=== PATIENT | male | born 1940 | race Caucasian/White ===

== ENCOUNTER → 2020-03-16 14:52 | Outpatient (CLI) | payer MEDICARE, BC ==
[~2020-03-16 14:52] MED LIST: ALPHA LIPOIC ACID; BEETROOT; CO Q-10100 MG PO; CRANBERRY; ESTER-C; GARLIC; LISINOPRIL30 MG PO; MULTIVITAMIN; NIACIN; OMEGA-3100 MG PO; SAW PALMETTO450 MG PO; TUMERIC; VITAMIN D3
== END | disposition home or self-care (01) ==
LOC: D.CT 14:52
PROVIDERS: ATTEND Family Medicine
DX: R10.9 Unspecified abdominal pain (principal)

== ENCOUNTER 2020-03-16 19:49 | Emergency (ER) | payer MEDICARE, BC ==
[~2020-03-16] VITALS: Ht 176.5 cm; Wt 86.4 kg
[2020-03-16 20:03] VITALS: Ht 176.5 cm; Wt 86.4 kg
[2020-03-16] MEDS ORDERED: LISINOPRIL30 MG PO (20:05)
[2020-03-16] MEDS ORDERED: SAW PALMETTO450 MG PO (20:05)
[2020-03-16] MEDS ORDERED: MULTIVITAMIN (20:06)
[2020-03-16] MEDS ORDERED: CO Q-10100 MG PO (20:06)
[2020-03-16] MEDS ORDERED: CRANBERRY (20:06)
[2020-03-16] MEDS ORDERED: OMEGA-3100 MG PO (20:06)
[2020-03-16] MEDS ORDERED: ALPHA LIPOIC ACID (20:07)
[2020-03-16] MEDS ORDERED: ESTER-C (20:07)
[2020-03-16] MEDS ORDERED: TUMERIC (20:08)
[2020-03-16] MEDS ORDERED: GARLIC (20:08)
[2020-03-16] MEDS ORDERED: NIACIN (20:08)
[2020-03-16] MEDS ORDERED: VITAMIN D3 (20:09)
[2020-03-16] MEDS ORDERED: BEETROOT (20:09)
[2020-03-16 20:40] LABS: BASOPHILS 0.1 % (0-2); EOSINOPHILS 0.2 % (0-7); HEMATOCRIT 47.4 % (42.0-54.0); HEMOGLOBIN 16.1 g/dL (13.5-17.5); IMMATURE GRANULOCYTES 0.2 % (0-5); LYMPHOCYTES 5.6 % (15-50); MCH 32.2 pg (26.0-34.0); MCV 94.8 fL (80.0-100.0); MEAN PLATELET VOLUME 9.9 fL (7.4-10.4); MONOCYTES 8.6 % (2-11); NEUTROPHILS 85.3 % (40-80); PLATELET COUNT 199 10x3/uL (130-400); RDW 12.9 % (11.5-14.5); WBC 16.2 10x3/uL (4.8-10.8)
[2020-03-16 20:57] LABS: CALC OSMOLALITY 266 mosm/kg (275-300); CALCIUM 8.3 mg/dL (8.5-10.1); CARBON DIOXIDE 30.1 mmol/L (21.0-32.0); CHLORIDE - SERUM 96 mmol/L (98-107); CREATININE - SERUM 1.5 mg/dL (0.6-1.3); GLUCOSE 143 mg/dL (74-106); POTASSIUM - SERUM 3.8 mmol/L (3.5-5.1); SODIUM 131 mmol/L (136-145); UREA NITROGEN 19 mg/dL (7-18); eGFR NON AFRICAN AMERICAN 48 mL/min (90-120)
[2020-03-16 21:07] LABS: ALBUMIN 3.5 g/dL (3.4-5.0); ALKALINE PHOSPHATASE 66 U/L (30-120); ALT (SGPT) 29 U/L (10-68); AMYLASE - SERUM 38 U/L (25-115); BILIRUBIN - TOTAL 0.95 mg/dL (0.2-1.3); LIPASE 61 U/L (73-393); PROTEIN - SERUM 7.6 g/dL (6.4-8.2)
[2020-03-16 21:08] LABS: TROPONIN-I < 0.017 ng/mL (0.000-0.060)
[2020-03-16 21:20] LABS: BILIRUBIN NEGATIVE (NEGATIVE); GLUCOSE NEGATIVE (NEGATIVE); KETONE NEGATIVE (NEGATIVE); NITRITE NEGATIVE (NEGATIVE); SPECIFIC GRAVITY 1.015 (1.005-1.020); UROBILINOGEN NORMAL (NORMAL)
[2020-03-16 21:21] LABS: BACTERIA FEW /hpf (NEGATIVE); WHITE CELLS - URINE OCC /hpf (NEGATIVE)
[2020-03-17 00:40] VITALS: BP 164/90
== END 2020-03-17 00:40 | disposition other institution (70) ==
LOC: D.ER 19:49
PROVIDERS: Family Medicine
DX: N13.2 Hydronephrosis with renal and ureteral calculous obstruction (principal); I10 Essential (primary) hypertension; N17.9 Acute kidney failure, unspecified; K52.9 Noninfective gastroenteritis and colitis, unspecified; E83.51 Hypocalcemia; D72.829 Elevated white blood cell count, unspecified; R73.9 Hyperglycemia, unspecified; K59.00 Constipation, unspecified

== ENCOUNTER 2020-04-12 07:02 | Day surgery (SDC) | payer MEDICARE, BC ==
[~2020-04-12] VITALS: Ht 176.5 cm; Wt 83.6 kg
[2020-04-12 07:31] LABS: HEMATOCRIT 43.9 % (42.0-54.0); HEMOGLOBIN 14.5 g/dL (13.5-17.5); MCH 31.3 pg (26.0-34.0); MCV 94.8 fL (80.0-100.0); MEAN PLATELET VOLUME 9.5 fL (7.4-10.4); RBC 4.63 10x6/uL (4.20-6.10); RDW 12.7 % (11.5-14.5); WBC 6.2 10x3/uL (4.8-10.8)
[2020-04-12 08:29] VITALS: BP 122/64; Ht 176.5 cm; Wt 83.6 kg
--- NOTE | 2020-04-12 11:17 | NUR ---
1112 DR. NATACHA ESPINOZA. XRAY NOTIFIED OF NEED FOR XRAY.
--- NOTE | 2020-04-12 12:20 | NUR ---
[address] MANZANO POST PROCEDURE CHEST XRAY: NO FREE AIR. STATES PATIENT NO LONGER IS NPO. MAY ADVANCE DIET & DISCHARGE. Sanjuanita REYES R.N.
--- NOTE | 2020-04-12 14:50 | NUR ---
1230 DRANK & RETAINED OJ. IV DC'ED WITH CATH INTACT. DRESSING. Sanjuanita HigginbothamNAnderson 1240 DRESSED. AWAKE & ALERT. GIVEN DISCHARGE INFORMATION INCLUDING: MED REC, RX: JOSE, RTC APPT,[facility]PS POST ENDOSCOPIC D/C INSTRUCTIONS. PT VOICED UNDERSTANDING. TO PRIVATE CAR VIA WHEELCHAIR BY THIS NURSE. HOME WITH FRIEND, FARIHA SOSA. Sanjuanita REYES R.N.
--- NOTE | 2020-04-13 16:07 | HP ---
PATIENT: BARBARA CHUNG MEDICAL RECORD: [id number] ACCOUNT: [id number] [facility] : 42 ADMISSION DATE: 04/12/20 PCP: BARRINGTON SUMNER MD HISTORY AND PHYSICAL EXAMINATION CHIEF COMPLAINT: Possible colon mass. HISTORY OF PRESENT ILLNESS: The patient underwent a CT scan and it stated that there was focal circumferential wall thickening in the mid sigmoid colon concerning for a possible mass and direct visualization, in other words endoscopy, was recommended. The patient had no hematochezia. No abdominal pain. No melena. HOME MEDICINES: Lisinopril. ALLERGIES: No known drug allergies. SOCIAL HISTORY: Nonsmoker. PAST MEDICAL AND SURGICAL HISTORY: Questionable sleep apnea, hypertension, gastroesophageal reflux. REVIEW OF SYSTEMS: Negative for seizures or CVA. Negative for diabetes or thyroid problems. PHYSICAL EXAMINATION: GENERAL: The patient does not appear acutely ill. He does not appear chronically ill. VITAL SIGNS: Reviewed. EARS: External ears appear normal. EYES: Extraocular movements are intact. NECK: Trachea is midline. CHEST: No intercostal retractions. PULMONARY: Nonlabored. IMPRESSION: CT evidence of a sigmoid colon mass. PLAN: Colonoscopy. TRANSINT:[id number] Voice Confirmation ID: [id number] DOCUMENT ID: [id number] ABDOUL MANZANO MD at 1607 CC: BARRINGTON SUMNER [id number] DICTATION DATE: 04/12/20 0959 LOANS CONSULTANT: 04/12/20 1329 [facility] 04/12/20 [id number] [place] [address]
--- NOTE | 2020-04-13 16:07 | OP ---
PATIENT NAME: BARBARA CHUNG MEDICAL RECORD: [id number] :44 LOCATION:D.OPS ADMISSION DATE: SURGEON: ABDOUL MANZANO MD DATE OF OPERATION: 04/12/2020 PREOPERATIVE DIAGNOSIS: Abnormal CT scan with a question of a circumferential mass involving the mid sigmoid colon. POSTOPERATIVE DIAGNOSES: 1. Abnormal CT scan with a question of a circumferential mass involving the mid sigmoid colon with no evidence of a circumferential mass within the sigmoid colon. 2. Abnormal area within the mid sigmoid colon that did not appear to be a malignancy, it may be an atypical polyp, but I would favor diverticulitis. 3. Three sessile polyps, all smaller than 9 mm. 4. Left-sided diverticulosis. PROCEDURES: 1. Total colonoscopy to cecum. 2. Hot biopsy forceps polypectomies times 3. 3. Cold biopsies of the area in question in the mid sigmoid colon with tattooing proximal and distal to this with Velvet ink. SURGEON: Abdoul Manzano MD BOARD STACKER: None. BLOOD LOSS: Minimal. ANESTHESIA: IV sedation. COMPLICATIONS: None. The risks, possible complications and alternatives to the procedure were explained to the patient. He elects to proceed. ENDOSCOPIC COURSE: The patient was conveyed to the endoscopy suite electively on 04/12/2020. IV sedation was induced by the anesthesia staff. The patient was placed in the [place] position. A digital rectal examination was performed. The prostate was symmetric and without nodules. A colonoscope was inserted through the anus. It was easily advanced to the cecum. The prep was adequate. I slowly withdrew the endoscope. I irrigated and aspirated extensively. I dragged the folds. A combination of normal imaging and narrow band imaging were utilized. Three polyps were removed in their entireties utilizing the hot biopsy forceps polypectomy technique. There was an area in the sigmoid colon that appeared to be inflamed. It did not appear to be glandular. It was not hard. This did not represent a malignancy. This could represent an inflammatory process. Cold endoscopic biopsies were performed. Because this is an abnormal area, a sclerotherapy needle was advanced and a submucosal injection of 2 cc of Velvet ink was performed proximal and then another 2 cc performed distal to this area in question. The argon plasma high risk ob was then utilized to provide hemostasis at the biopsy sites. The endoscope was then withdrawn into the rectum. A retroflexed view was OPERATIVE REPORT [id number] BARBARA CHUNG obtained. There was an anal papilla which I did not remove. I then unretroflexed the scope and removed it under direct vision. Due to this abnormal area, I am going to place the patient on Flagyl and I will see him in the office in 2-3 weeks. My plan is to perform a repeat endoscopy in 1 year due to this unusual appearing noncircumferential area in the mid sigmoid colon, which appeared inflammatory to me. TRANSINT:[id number] Voice Confirmation ID: [id number] DOCUMENT ID: [id number] ABDOUL MANZANO MD at 1607 CC: BARRINGTON SUMNER [phone] DICTATION DATE: 04/12/20 1105 [employer] CONTRACT[employer] ADMINISTRATOR: 04/12/[address] [facility] 04/12/[address] [facility] [address] [place] [address]
== END 2020-04-12 12:40 | disposition home or self-care (01) ==
LOC: D.OPS 07:02
PROVIDERS: Anesthesiology; ATTEND Surgery
DX: R93.5 Abnormal findings on diagnostic imaging of other abdominal regions, including retroperitoneum (principal); K63.5 Polyp of colon; K57.90 Diverticulosis of intestine, part unspecified, without perforation or abscess without bleeding